=== PATIENT | female | born 2005 | race African-American/Black ===

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

== ENCOUNTER 2024-04-12 12:18 | Emergency (ER) | payer BC, SELFPAY ==
[2024-04-12 12:23] VITALS: BP 116/75; PULSE 74; RESP 16; TEMP 36.3; O2SAT 96; BMI 20.4
--- NOTE | 2024-04-12 12:32 | ED.PSYCH ---
HPI - Psych General Time Seen by Provider: 12:32 Date Seen: 04/12/24 Chief Complaint: Psychiatric Problem/Disorder Stated Complaint: Mental health Time Seen by Provider: 04/12/24 12:20 Source: patient, RN notes reviewed and police Mode of arrival: other (Patient was brought here by police department at her request) Limitations: no limitations History of Present Illness HPI Narrative: This 18-year-old female is brought in by police from [place] where she goes to college. The police were called by security. There was an issue with her potentially yelling at college, she states she is having difficulties with her boyfriend who lives in the [facility]. She states he just does not care, she states that small things but they matter to her. She states she was with his child and miscarried. Menstrual cycles are regular. She wanted to come here to get checked out, wants a test. She has never had a sexually transmitted infection but is interested in having testing including HIV. She does not think she has HIV or an STI. She states she was diagnosed with the UTI in the recent past, was never able to get her antibiotics but feels the UTI symptoms are gone. She has no abdominal pain, no concerning vaginal discharge, no vaginal odor, no urinary symptoms, no fevers or chills. The police department reportedly had no concerns with her but she requested to come to the ER. She denies any suicidality, just states she struggling with issues with her relationship. She talks about her significant other, he was recently in skilled nursing and she states she spent her money to talk to him, calling the skilled nursing. She is interested in psychology. Related Data Home Medications ?Medication ?Instructions ?Recorded ?Confirmed No Known Home Medications 04/12/24 04/12/24 Allergies Allergy/AdvReac Type Severity Reaction Status Date / Time No Known Drug Allergies Allergy Verified 09/10/23 19:16 Review of Systems Narrative: As per HPI. Exam Const: Vital Signs, click to edit/add: Vital Signs - 24 hr 04/12/24 12:23 04/12/24 14:13 Temperature 97.3 F L Pulse Rate [Pulse Oximeter] 74 Respiratory Rate 16 16 Blood Pressure [Ri ght Upper Arm] 116/75 Pulse Oximetry 96 Oxygen Delivery Me thod Room Air This 18-year-old female is alert, interactive, no apparent distress. She has dark circles under eyes, appears tired. Her speech is normal, not rapid or pressured. She does have good eye contact. She does not seem overtly anxious, mood maybe is mildly down. She endorses problems with her relationship. Pupils are equal round, sclera clear. Symmetrical facial function. Neck is supple, no adenopathy or masses. Lungs are clear, good air entry, no wheezing or crackles. CV regular rate and rhythm, no murmur. Abdomen is flat, soft, no organomegaly, no masses noted. Documenting provider has reviewed patient's vital signs: yes Course Course ED Course: Will monitor patient here, she certainly seems to have life stressors with her boyfriend but is not giving me any acute decompensated mental health issues such is suicidality, homicidality, hallucinations. Will check urinalysis, urine test. Will do urine gonorrhea and chlamydia, have explained to her how these need to be collected. She does want HIV testing and will do the blood work for that. Reevaluation(s) Time of Reevaluation #1: 14:01 Reevaluation #1: Have reviewed with patient there is no evidence of urinary tract infection on her urinalysis, urinalysis does show contamination. She is not . She declines contraception. We discussed her mental health. She declines further intervention on this. She was on the phone fighting with her boyfriend when I came in the room, she did get off the phone. She is stressed about this relationship. She states she has been on medications for her mental health in the past, has done therapy. She does not feel she needs any of this right now. She feels safe to discharge to home. She is aware that she will be contacted with the chlamydia gonorrhea and HIV results. These will not be back immediately and can discharge from the ER at this time Time of Reevaluation #2: 16:17 Reevaluation #2: Called and left message on patient's voicemail that the 2 pending tests were negative or normal. She is advised to call us back if she has further questions. Vital Signs Vital signs: Initial Vital Signs Temperature 97.3 F L 04/12/24 12:23 Temperature Source Temporal Artery Scan 04/12/24 12:23 Pulse Rate 74 04/12/24 12:23 Respiratory Rate 16 04/12/24 12:23 Blood Pressure 116/75 04/12/24 12:23 Blood Pressure Mean 88 04/12/24 12:23 Blood Pressure Position Sitting 04/12/24 12:23 Pulse Oximetry 96 04/12/24 12:23 Oxygen Delivery Method Room Air 04/12/24 12:23 Vital Signs Temperature 97.3 F L 04/12/24 12:23 Pulse Rate 74 04/12/24 12:23 Respiratory Rate 16 04/12/24 12:23 Blood Pressure 116/75 04/12/24 12:23 Pulse Oximetry 96 04/12/24 12:23 Oxygen Delivery Method Room Air 04/12/24 12:23 Temperature 97.3 F L 04/12/24 12:23 Pulse Rate 74 04/12/24 12:23 Respiratory Rate 16 04/12/24 14:13 Blood Pressure 116/75 04/12/24 12:23 Pulse Oximetry 96 04/12/24 12:23 Oxygen Delivery Method Room Air 04/12/24 12:23 MDM - Psych Lab Data Attestation: I reviewed the patient's lab results. Labs: Lab Results 04/12/24 04/12/24 Range/Units 13:00 13:18 Urine Color Yellow (Yellow) Urine Appearance Slightly Cloudy A (Clear) Urine pH 5.5 (5.0-8.5) Ur Specific [place] >= 1.030 (1.000-1.030) Urine Protein 2+ A (Negative) Urine Glucose (UA) Negative (Negative) Urine Ketones 1+ A (Negative) Urine Blood Negative (Negative) Urine Nitrite Negative (Negative) Urine Bilirubin Negative (Negative) Urine Urobilinogen 0.2 (0.2-1.0) Ur Leukocyte Esterase Negative (Negative) Urine RBC 0-2 (0-2) Urine WBC 2-5 (0-5) Ur Squamous Epith Cells Moderate A (None-Few) Urine Bacteria Moderate A (None) Urine Mucus Many A (None) Urine HCG, Qual Negative (Negative) C.trachomatis Ampl DNA NOT DETECTED (No Detected) HIV 1&2 Ab/P24 Ag 4thGn Negative (Negative) N.gonorrhoeae Ampl DNA NOT DETECTED (No Detected) Discharge Plan Discharge Clinical Impression: Irregular menstrual cycle, Patient request for diagnostic testing Patient Disposition: Home, Self-Care Condition: Stable Additional Instructions: We will contact you with the pending test results. I do recommend that you seek out counseling or therapy through [facility] to help you through this acute crisis with your boyfriend. If you feel that you need further evaluation for mental health issues such as depression or anxiety, suicidal ideation, please seek emergent medical re-evaluation. Activity Level: No Restrictions Discharge Diet: Regular Prescriptions: No Action No Known Home Medications Follow Up/Referrals: Provider,Not a Local [Primary Care Provider] - Stand Alone Forms: Foldax Info Instructions
[2024-04-12 13:20] LABS: Appearance Urine Slightly Cloudy (Clear); Bilirubin Urine Negative (Negative); Blood Urine Negative (Negative); Color Urine Yellow (Yellow); Glucose Urine Negative (Negative); Ketones Urine 1+ (Negative); Leukocyte Esterase Urine Negative (Negative); Nitrite Urine Negative (Negative); Protein Urine 2+ (Negative); Specific Gravity Urine >= 1.030 (1.000-1.030); Urobilinogen Urine 0.2 (0.2-1.0); pH Urine 5.5 (5.0-8.5)
[2024-04-12 13:36] LABS: Ur HCG Qualitative* Negative (Negative)
[2024-04-12 13:52] LABS: Bacteria Urine Moderate; Mucus Urine Many; RBC Urine 0-2 (0-2); Squamous Epithelial Cell Urine Moderate (None-Few)
[2024-04-12 14:13] VITALS: RESP 16
--- NOTE | 2024-04-12 14:13 | ED.NURSE ---
Pt A & OX4, denies SI. Wanted STD screening while in ED. Has been cooperative, UA sent and ran- see lab results. Denies pain.
[2024-04-12 14:30] LABS: HIV 1/2/P24 Combo Screen* Negative (Negative)
[2024-04-12 15:30] LABS: Chlamydia DNA Amplified* NOT DETECTED (No Detected); GC DNA Amplified* NOT DETECTED (No Detected)
== END 2024-04-12 14:15 | disposition home or self-care (01) ==
PROVIDERS: Emergency Provider Family Medicine
DX: N92.6 Irregular menstruation, unspecified (principal)
CPT/HCPCS: 36415; 81001; 81025; 86703; 87086; 87491; 87591; 99283